=== PATIENT | male | born 1975 | race Caucasian/White ===

== ENCOUNTER 2022-01-19 12:00 | Inpatient (IN) | payer OTHER ==
[2022-01-19 12:39] VITALS: BMI 23.3
[2022-01-19] MEDS ORDERED: IBUPROFEN 400 MG TABLET (FP) PO PRN (13:56)
[2022-01-19] MEDS ORDERED: ACETAMINOPHEN 325 MG TABLET (FP) PO PRN (13:56)
[2022-01-19] MEDS ORDERED: LOPERAMIDE HCL 2 MG CAPSULE PO PRN (13:56)
[2022-01-19] MEDS ORDERED: NICOTINE POLACRILEX 2 MG GUM BC PRN (13:56)
[2022-01-19] MEDS ORDERED: guaiFENesin 200 MG/10 ML 10 ML UNIT-DOSE CUPS PO PRN (13:56)
[2022-01-19] MEDS ORDERED: P-EPHED 60MG/TRIPROLIDI 2.5MG TABLET PO PRN (13:56)
[2022-01-19] MEDS ORDERED: MAG HYDROX/AL HYDROX/SIMETH 30 ML UNIT-DOSE CUP PO PRN (13:56)
[2022-01-19] MEDS ORDERED: MAGNESIUM CITRATE 300 ML BOTTLE PO PRN (13:56)
[2022-01-19] MEDS ORDERED: MAGNESIUM HYDROX 2400MG/30ML ORAL SUSPENSION 30 ML CUP PO PRN (13:56)
[2022-01-19] MEDS ORDERED: TUBERCULIN PPD 5 TU/0.1ML VIAL ID ONE (19:57)
[2022-01-19] MEDS: PRENATAL VITAMINS W/ FOLIC ACID TABLET (FP) PO SCH (22:52)
[2022-01-19] MEDS: NICOTINE 7 MG/24 HOURS TOPICAL PATCH TD SCH (22:52)
[2022-01-19] MEDS: hydrOXYzine PAMOATE 25 MG CAPSULE (FP) PO SCH ×2 (22:52→22:53)
[2022-01-19] MEDS: THIAMINE HCL 100 MG TABLET (FP) PO SCH (22:52)
[2022-01-19] MEDS: MELATONIN 5 MG TABLETS PO SCH (22:52)
[2022-01-20] MEDS: hydrOXYzine PAMOATE 25 MG CAPSULE (FP) PO SCH ×2 (06:04→11:01)
[2022-01-20] MEDS ORDERED: hydrOXYzine PAMOATE 25 MG CAPSULE (FP) PO PRN (10:03)
[2022-01-20 10:53] LABS: HEMATOCRIT 35.3 % (35.4-49); HEMOGLOBIN 12.1 GM/dL (11.7-16.9); MCH 29.4 pg (25.7-33.7); MCHC 34.2 g/dl (32.0-35.9); MEAN CELL VOLUME 85.9 fl (80-96); PLATELET COUNT 151 10^3/uL (134-434); RBC 4.12 M/mm3 (4.00-5.60); RDW 14.4 % (11.9-15.9); WHITE BLOOD COUNT 6.6 K/mm3 (4.0-10.0)
[2022-01-20] MEDS: methaDONE HCL 40 MG DISPERSABLE TABLET PO SCH (10:57)
[2022-01-20] MEDS: PRENATAL VITAMINS W/ FOLIC ACID TABLET (FP) PO SCH (10:58)
[2022-01-20] MEDS: NICOTINE 7 MG/24 HOURS TOPICAL PATCH TD SCH (10:58)
[2022-01-20 12:13] LABS: ALBUMIN 2.7 g/dl (3.4-5.0); CALCIUM 8.4 mg/dL (8.5-10.1)
[2022-01-20 12:14] LABS: BLOOD UREA NITROGEN 13.9 mg/dL (7-18)
[2022-01-20 12:16] LABS: CREATININE 1.1 mg/dL (0.55-1.3)
[2022-01-20 12:18] LABS: BILIRUBIN,TOTAL 0.3 mg/dL (0.2-1)
[2022-01-20] MEDS: CEPHALEXIN MONOHYDRATE 500 MG CAPSULE (UD) PO SCH ×2 (14:52→21:16)
[2022-01-20] MEDS: GABAPENTIN 400 MG CAPSULE PO SCH ×2 (14:52→21:16)
[2022-01-20] MEDS: levETIRAcetam 500 MG TABLET (FP) PO SCH ×2 (14:53→21:17)
[2022-01-20] MEDS: FAMOTIDINE 20 MG TABLET PO SCH ×2 (14:56→21:17)
[2022-01-20] MEDS: BACITRACIN 0.9 GM PACKET TP SCH ×2 (14:56→21:18)
[2022-01-20 16:51] LABS: URINE APPEARANCE TURBID; URINE BILIRUBIN NEGATIVE (NEGATIVE); URINE COLOR YELLOW; URINE GLUCOSE (UA) NEGATIVE (NEGATIVE); URINE KETONE NEGATIVE (NEGATIVE); URINE LEUK ESTERASE NEGATIVE (NEGATIVE); URINE NITRITE NEGATIVE (NEGATIVE); URINE PROTEIN NEGATIVE (NEGATIVE); URINE UROBILINOGEN 0.2 mg/dL (0.2-1.0)
[2022-01-20 18:11] LABS: SYPHILIS W/ RPR CONF NON-REACTIVE (NONREACTIVE)
[2022-01-20] MEDS: THIAMINE HCL 100 MG TABLET (FP) PO SCH (21:16)
[2022-01-20] MEDS: MELATONIN 5 MG TABLETS PO SCH (21:16)
[2022-01-21] MEDS: CEPHALEXIN MONOHYDRATE 500 MG CAPSULE (UD) PO SCH ×4 (02:46→21:13)
[2022-01-21] MEDS: GABAPENTIN 400 MG CAPSULE PO SCH ×3 (07:04→21:15)
[2022-01-21] MEDS: methaDONE HCL 40 MG DISPERSABLE TABLET PO SCH (07:05)
[2022-01-21] MEDS: BACITRACIN 0.9 GM PACKET TP SCH ×2 (10:05→21:17)
[2022-01-21] MEDS: FAMOTIDINE 20 MG TABLET PO SCH ×2 (10:07→21:16)
[2022-01-21] MEDS: levETIRAcetam 500 MG TABLET (FP) PO SCH ×2 (10:07→21:15)
[2022-01-21] MEDS: PRENATAL VITAMINS W/ FOLIC ACID TABLET (FP) PO SCH (10:07)
[2022-01-21] MEDS: NICOTINE 10 MG CARTRIDGE (INHALER) IH PRN (10:08)
[2022-01-21] MEDS: NICOTINE 7 MG/24 HOURS TOPICAL PATCH TD SCH (10:08)
[2022-01-21] MEDS: MIRTAZAPINE 15 MG TABLET (FP) PO SCH (21:15)
[2022-01-21] MEDS: THIAMINE HCL 100 MG TABLET (FP) PO SCH (21:16)
[2022-01-21] MEDS: MELATONIN 5 MG TABLETS PO SCH (21:16)
[2022-01-22] MEDS: CEPHALEXIN MONOHYDRATE 500 MG CAPSULE (UD) PO SCH ×4 (02:28→21:23)
[2022-01-22] MEDS: GABAPENTIN 400 MG CAPSULE PO SCH ×3 (06:29→21:23)
[2022-01-22] MEDS: methaDONE HCL 40 MG DISPERSABLE TABLET PO SCH (06:29)
[2022-01-22] MEDS: levETIRAcetam 500 MG TABLET (FP) PO SCH ×2 (09:44→21:23)
[2022-01-22] MEDS: FAMOTIDINE 20 MG TABLET PO SCH ×2 (09:44→21:23)
[2022-01-22] MEDS: NICOTINE 7 MG/24 HOURS TOPICAL PATCH TD SCH (09:44)
[2022-01-22] MEDS: PRENATAL VITAMINS W/ FOLIC ACID TABLET (FP) PO SCH (09:44)
[2022-01-22] MEDS: BACITRACIN 0.9 GM PACKET TP SCH ×2 (09:44→21:24)
[2022-01-22] MEDS: NICOTINE 10 MG CARTRIDGE (INHALER) IH PRN (13:24)
[2022-01-22] MEDS: THIAMINE HCL 100 MG TABLET (FP) PO SCH (21:23)
[2022-01-22] MEDS: MIRTAZAPINE 15 MG TABLET (FP) PO SCH (21:23)
[2022-01-22] MEDS: MELATONIN 5 MG TABLETS PO SCH (21:24)
[2022-01-23] MEDS: CEPHALEXIN MONOHYDRATE 500 MG CAPSULE (UD) PO SCH ×4 (03:00→21:13)
[2022-01-23] MEDS: methaDONE HCL 40 MG DISPERSABLE TABLET PO SCH (06:41)
[2022-01-23] MEDS: GABAPENTIN 400 MG CAPSULE PO SCH ×3 (06:41→21:13)
[2022-01-23] MEDS: PRENATAL VITAMINS W/ FOLIC ACID TABLET (FP) PO SCH (09:53)
[2022-01-23] MEDS: levETIRAcetam 500 MG TABLET (FP) PO SCH ×2 (09:54→21:13)
[2022-01-23] MEDS: NICOTINE 7 MG/24 HOURS TOPICAL PATCH TD SCH (09:54)
[2022-01-23] MEDS: FAMOTIDINE 20 MG TABLET PO SCH ×2 (09:54→21:13)
[2022-01-23] MEDS: BACITRACIN 0.9 GM PACKET TP SCH ×2 (09:54→21:14)
[2022-01-23] MEDS: THIAMINE HCL 100 MG TABLET (FP) PO SCH (21:13)
[2022-01-23] MEDS: MIRTAZAPINE 15 MG TABLET (FP) PO SCH (21:13)
[2022-01-23] MEDS: MELATONIN 5 MG TABLETS PO SCH (21:14)
[2022-01-24] MEDS: CEPHALEXIN MONOHYDRATE 500 MG CAPSULE (UD) PO SCH ×4 (02:54→20:19)
[2022-01-24] MEDS: GABAPENTIN 400 MG CAPSULE PO SCH ×3 (06:54→21:20)
[2022-01-24] MEDS: methaDONE HCL 40 MG DISPERSABLE TABLET PO SCH (06:55)
[2022-01-24] MEDS: FAMOTIDINE 20 MG TABLET PO SCH ×2 (09:47→21:20)
[2022-01-24] MEDS: levETIRAcetam 500 MG TABLET (FP) PO SCH ×2 (09:47→21:18)
[2022-01-24] MEDS: PRENATAL VITAMINS W/ FOLIC ACID TABLET (FP) PO SCH (09:47)
[2022-01-24] MEDS: BACITRACIN 0.9 GM PACKET TP SCH ×2 (09:48→21:20)
[2022-01-24] MEDS: NICOTINE 7 MG/24 HOURS TOPICAL PATCH TD SCH (09:48)
[2022-01-24] MEDS: MIRTAZAPINE 15 MG TABLET (FP) PO SCH (21:18)
[2022-01-24] MEDS: MELATONIN 5 MG TABLETS PO SCH (21:19)
[2022-01-24] MEDS: THIAMINE HCL 100 MG TABLET (FP) PO SCH (21:19)
[2022-01-25] MEDS: CEPHALEXIN MONOHYDRATE 500 MG CAPSULE (UD) PO SCH ×4 (01:57→20:08)
[2022-01-25] MEDS: GABAPENTIN 400 MG CAPSULE PO SCH ×3 (06:57→22:07)
[2022-01-25] MEDS: methaDONE HCL 40 MG DISPERSABLE TABLET PO SCH (06:59)
[2022-01-25] MEDS: FAMOTIDINE 20 MG TABLET PO SCH ×2 (10:11→22:07)
[2022-01-25] MEDS: NICOTINE 7 MG/24 HOURS TOPICAL PATCH TD SCH (10:11)
[2022-01-25] MEDS: BACITRACIN 0.9 GM PACKET TP SCH ×2 (10:11→22:07)
[2022-01-25] MEDS: PRENATAL VITAMINS W/ FOLIC ACID TABLET (FP) PO SCH (10:11)
[2022-01-25] MEDS: levETIRAcetam 500 MG TABLET (FP) PO SCH ×2 (10:11→22:07)
[2022-01-25] MEDS: MELATONIN 5 MG TABLETS PO SCH (22:07)
[2022-01-25] MEDS: THIAMINE HCL 100 MG TABLET (FP) PO SCH (22:07)
[2022-01-25] MEDS: MIRTAZAPINE 15 MG TABLET (FP) PO SCH (22:07)
[2022-01-26] MEDS: CEPHALEXIN MONOHYDRATE 500 MG CAPSULE (UD) PO SCH ×4 (02:18→21:12)
[2022-01-26] MEDS: GABAPENTIN 400 MG CAPSULE PO SCH ×3 (06:23→21:12)
[2022-01-26] MEDS: methaDONE HCL 40 MG DISPERSABLE TABLET PO SCH (06:25)
[2022-01-26] MEDS: levETIRAcetam 500 MG TABLET (FP) PO SCH ×2 (10:28→21:13)
[2022-01-26] MEDS: BACITRACIN 0.9 GM PACKET TP SCH ×2 (10:28→21:13)
[2022-01-26] MEDS: PRENATAL VITAMINS W/ FOLIC ACID TABLET (FP) PO SCH (10:29)
[2022-01-26] MEDS: FAMOTIDINE 20 MG TABLET PO SCH ×2 (10:29→21:12)
[2022-01-26] MEDS: NICOTINE 7 MG/24 HOURS TOPICAL PATCH TD SCH (10:29)
[2022-01-26] MEDS: THIAMINE HCL 100 MG TABLET (FP) PO SCH (21:12)
[2022-01-26] MEDS: MIRTAZAPINE 15 MG TABLET (FP) PO SCH (21:12)
[2022-01-26] MEDS: MELATONIN 5 MG TABLETS PO SCH (21:13)
[2022-01-27] MEDS: CEPHALEXIN MONOHYDRATE 500 MG CAPSULE (UD) PO SCH ×2 (02:47→08:51)
[2022-01-27] MEDS: GABAPENTIN 400 MG CAPSULE PO SCH ×3 (06:15→21:05)
[2022-01-27] MEDS: methaDONE HCL 40 MG DISPERSABLE TABLET PO SCH (06:15)
[2022-01-27 08:31] VITALS: RESP 18
[2022-01-27] MEDS: NICOTINE 7 MG/24 HOURS TOPICAL PATCH TD SCH (10:44)
[2022-01-27] MEDS: BACITRACIN 0.9 GM PACKET TP SCH ×2 (10:45→21:06)
[2022-01-27] MEDS: PRENATAL VITAMINS W/ FOLIC ACID TABLET (FP) PO SCH (10:45)
[2022-01-27] MEDS: FAMOTIDINE 20 MG TABLET PO SCH ×2 (10:45→21:05)
[2022-01-27] MEDS: levETIRAcetam 500 MG TABLET (FP) PO SCH ×2 (10:45→21:05)
[2022-01-27] MEDS: THIAMINE HCL 100 MG TABLET (FP) PO SCH (21:04)
[2022-01-27] MEDS: MELATONIN 5 MG TABLETS PO SCH (21:04)
[2022-01-27] MEDS: MIRTAZAPINE 15 MG TABLET (FP) PO SCH (21:05)
[2022-01-28] MEDS: methaDONE HCL 40 MG DISPERSABLE TABLET PO SCH (06:49)
[2022-01-28] MEDS: GABAPENTIN 400 MG CAPSULE PO SCH ×3 (06:49→21:13)
[2022-01-28] MEDS: PRENATAL VITAMINS W/ FOLIC ACID TABLET (FP) PO SCH (10:00)
[2022-01-28] MEDS: BACITRACIN 0.9 GM PACKET TP SCH ×2 (10:00→21:13)
[2022-01-28] MEDS: FAMOTIDINE 20 MG TABLET PO SCH ×2 (10:00→21:14)
[2022-01-28] MEDS: levETIRAcetam 500 MG TABLET (FP) PO SCH ×2 (10:00→21:13)
[2022-01-28] MEDS: NICOTINE 7 MG/24 HOURS TOPICAL PATCH TD SCH (10:01)
[2022-01-28] MEDS: MIRTAZAPINE 15 MG TABLET (FP) PO SCH (21:13)
[2022-01-28] MEDS: MELATONIN 5 MG TABLETS PO SCH (21:14)
[2022-01-28] MEDS: NICOTINE 10 MG CARTRIDGE (INHALER) IH PRN (21:14)
[2022-01-28] MEDS: THIAMINE HCL 100 MG TABLET (FP) PO SCH (21:14)
[2022-01-29] MEDS: methaDONE HCL 40 MG DISPERSABLE TABLET PO SCH (06:03)
[2022-01-29] MEDS: GABAPENTIN 400 MG CAPSULE PO SCH ×3 (06:03→21:21)
[2022-01-29] MEDS: NICOTINE 10 MG CARTRIDGE (INHALER) IH PRN ×3 (06:51→13:01)
[2022-01-29] MEDS: PRENATAL VITAMINS W/ FOLIC ACID TABLET (FP) PO SCH (09:56)
[2022-01-29] MEDS: levETIRAcetam 500 MG TABLET (FP) PO SCH ×2 (09:57→21:20)
[2022-01-29] MEDS: BACITRACIN 0.9 GM PACKET TP SCH ×2 (09:57→21:21)
[2022-01-29] MEDS: NICOTINE 7 MG/24 HOURS TOPICAL PATCH TD SCH (09:57)
[2022-01-29] MEDS: FAMOTIDINE 20 MG TABLET PO SCH ×2 (09:57→21:21)
[2022-01-29] MEDS: MELATONIN 5 MG TABLETS PO SCH (21:21)
[2022-01-29] MEDS: THIAMINE HCL 100 MG TABLET (FP) PO SCH (21:21)
[2022-01-29] MEDS: MIRTAZAPINE 15 MG TABLET (FP) PO SCH (21:21)
[2022-01-30] MEDS: methaDONE HCL 40 MG DISPERSABLE TABLET PO SCH (06:52)
[2022-01-30] MEDS: GABAPENTIN 400 MG CAPSULE PO SCH ×3 (06:52→21:23)
[2022-01-30] MEDS: NICOTINE 10 MG CARTRIDGE (INHALER) IH PRN ×2 (06:54→11:08)
[2022-01-30] MEDS: levETIRAcetam 500 MG TABLET (FP) PO SCH ×2 (11:08→21:23)
[2022-01-30] MEDS: FAMOTIDINE 20 MG TABLET PO SCH ×2 (11:08→21:23)
[2022-01-30] MEDS: NICOTINE 7 MG/24 HOURS TOPICAL PATCH TD SCH (11:09)
[2022-01-30] MEDS: BACITRACIN 0.9 GM PACKET TP SCH ×2 (11:10→21:23)
[2022-01-30] MEDS: PRENATAL VITAMINS W/ FOLIC ACID TABLET (FP) PO SCH (11:11)
[2022-01-30] MEDS: MIRTAZAPINE 15 MG TABLET (FP) PO SCH (21:23)
[2022-01-30] MEDS: THIAMINE HCL 100 MG TABLET (FP) PO SCH (21:24)
[2022-01-30] MEDS: MELATONIN 5 MG TABLETS PO SCH (21:24)
[2022-01-31] MEDS: GABAPENTIN 400 MG CAPSULE PO SCH ×3 (06:37→21:39)
[2022-01-31] MEDS: methaDONE HCL 40 MG DISPERSABLE TABLET PO SCH (06:37)
[2022-01-31] MEDS: PRENATAL VITAMINS W/ FOLIC ACID TABLET (FP) PO SCH (10:27)
[2022-01-31] MEDS: FAMOTIDINE 20 MG TABLET PO SCH ×2 (10:27→21:40)
[2022-01-31] MEDS: levETIRAcetam 500 MG TABLET (FP) PO SCH ×2 (10:27→21:39)
[2022-01-31] MEDS: NICOTINE 7 MG/24 HOURS TOPICAL PATCH TD SCH (10:27)
[2022-01-31] MEDS: BACITRACIN 0.9 GM PACKET TP SCH ×2 (10:28→21:39)
[2022-01-31] MEDS: MELATONIN 5 MG TABLETS PO SCH (21:39)
[2022-01-31] MEDS: THIAMINE HCL 100 MG TABLET (FP) PO SCH (21:40)
[2022-01-31] MEDS: MIRTAZAPINE 15 MG TABLET (FP) PO SCH (21:40)
[2022-02-01] MEDS: GABAPENTIN 400 MG CAPSULE PO SCH ×3 (06:58→21:00)
[2022-02-01] MEDS: methaDONE HCL 40 MG DISPERSABLE TABLET PO SCH (06:58)
[2022-02-01] MEDS: levETIRAcetam 500 MG TABLET (FP) PO SCH ×2 (10:18→21:01)
[2022-02-01] MEDS: NICOTINE 7 MG/24 HOURS TOPICAL PATCH TD SCH (10:19)
[2022-02-01] MEDS: FAMOTIDINE 20 MG TABLET PO SCH ×2 (10:20→21:00)
[2022-02-01] MEDS: BACITRACIN 0.9 GM PACKET TP SCH ×2 (10:20→21:02)
[2022-02-01] MEDS: PRENATAL VITAMINS W/ FOLIC ACID TABLET (FP) PO SCH (10:21)
[2022-02-01] MEDS: THIAMINE HCL 100 MG TABLET (FP) PO SCH (21:01)
[2022-02-01] MEDS: MIRTAZAPINE 15 MG TABLET (FP) PO SCH (21:01)
[2022-02-01] MEDS: MELATONIN 5 MG TABLETS PO SCH (21:01)
[2022-02-01] MEDS: NICOTINE 10 MG CARTRIDGE (INHALER) IH PRN (21:01)
[2022-02-02] MEDS: methaDONE HCL 40 MG DISPERSABLE TABLET PO SCH (06:10)
[2022-02-02] MEDS: GABAPENTIN 400 MG CAPSULE PO SCH ×3 (07:10→21:35)
[2022-02-02] MEDS: FAMOTIDINE 20 MG TABLET PO SCH ×2 (10:14→21:35)
[2022-02-02] MEDS: levETIRAcetam 500 MG TABLET (FP) PO SCH ×2 (10:14→21:35)
[2022-02-02] MEDS: BACITRACIN 0.9 GM PACKET TP SCH ×2 (10:14→21:34)
[2022-02-02] MEDS: NICOTINE 7 MG/24 HOURS TOPICAL PATCH TD SCH (10:15)
[2022-02-02] MEDS: PRENATAL VITAMINS W/ FOLIC ACID TABLET (FP) PO SCH (10:15)
[2022-02-02] MEDS: NICOTINE 10 MG CARTRIDGE (INHALER) IH PRN (10:19)
[2022-02-02] MEDS: MELATONIN 5 MG TABLETS PO SCH (21:35)
[2022-02-02] MEDS: THIAMINE HCL 100 MG TABLET (FP) PO SCH (21:35)
[2022-02-02] MEDS: MIRTAZAPINE 15 MG TABLET (FP) PO SCH (21:35)
[2022-02-03] MEDS: GABAPENTIN 400 MG CAPSULE PO SCH ×3 (06:42→21:11)
[2022-02-03] MEDS: NICOTINE 10 MG CARTRIDGE (INHALER) IH PRN ×3 (06:42→22:08)
[2022-02-03] MEDS: methaDONE HCL 40 MG DISPERSABLE TABLET PO SCH (06:45)
[2022-02-03] MEDS: FAMOTIDINE 20 MG TABLET PO SCH ×2 (10:37→21:11)
[2022-02-03] MEDS: levETIRAcetam 500 MG TABLET (FP) PO SCH ×2 (10:37→21:11)
[2022-02-03] MEDS: PRENATAL VITAMINS W/ FOLIC ACID TABLET (FP) PO SCH (10:37)
[2022-02-03] MEDS: NICOTINE 7 MG/24 HOURS TOPICAL PATCH TD SCH (10:38)
[2022-02-03] MEDS: BACITRACIN 0.9 GM PACKET TP SCH ×2 (10:39→21:11)
[2022-02-03] MEDS: MELATONIN 5 MG TABLETS PO SCH (21:11)
[2022-02-03] MEDS: THIAMINE HCL 100 MG TABLET (FP) PO SCH (21:12)
[2022-02-03] MEDS: MIRTAZAPINE 15 MG TABLET (FP) PO SCH (22:08)
[2022-02-04] MEDS: methaDONE HCL 40 MG DISPERSABLE TABLET PO SCH (06:44)
[2022-02-04] MEDS: GABAPENTIN 400 MG CAPSULE PO SCH ×3 (06:44→21:08)
[2022-02-04] MEDS: NICOTINE 7 MG/24 HOURS TOPICAL PATCH TD SCH (10:11)
[2022-02-04] MEDS: BACITRACIN 0.9 GM PACKET TP SCH ×2 (10:11→21:08)
[2022-02-04] MEDS: levETIRAcetam 500 MG TABLET (FP) PO SCH ×2 (10:12→21:08)
[2022-02-04] MEDS: FAMOTIDINE 20 MG TABLET PO SCH ×2 (10:12→21:08)
[2022-02-04] MEDS: PRENATAL VITAMINS W/ FOLIC ACID TABLET (FP) PO SCH (10:12)
[2022-02-04] MEDS: NICOTINE 10 MG CARTRIDGE (INHALER) IH PRN ×2 (10:13→21:07)
[2022-02-04] MEDS: MELATONIN 5 MG TABLETS PO SCH (21:08)
[2022-02-04] MEDS: THIAMINE HCL 100 MG TABLET (FP) PO SCH (21:08)
[2022-02-04] MEDS: MIRTAZAPINE 15 MG TABLET (FP) PO SCH (21:08)
[2022-02-05] MEDS: methaDONE HCL 40 MG DISPERSABLE TABLET PO SCH (06:25)
[2022-02-05] MEDS: GABAPENTIN 400 MG CAPSULE PO SCH ×3 (06:25→21:13)
[2022-02-05] MEDS: NICOTINE 10 MG CARTRIDGE (INHALER) IH PRN ×3 (06:26→21:14)
[2022-02-05] MEDS: BACITRACIN 0.9 GM PACKET TP SCH ×2 (10:36→21:13)
[2022-02-05] MEDS: PRENATAL VITAMINS W/ FOLIC ACID TABLET (FP) PO SCH (10:36)
[2022-02-05] MEDS: NICOTINE 7 MG/24 HOURS TOPICAL PATCH TD SCH (10:36)
[2022-02-05] MEDS: levETIRAcetam 500 MG TABLET (FP) PO SCH ×2 (10:36→21:13)
[2022-02-05] MEDS: FAMOTIDINE 20 MG TABLET PO SCH ×2 (10:36→21:13)
[2022-02-05] MEDS: THIAMINE HCL 100 MG TABLET (FP) PO SCH (21:12)
[2022-02-05] MEDS: MELATONIN 5 MG TABLETS PO SCH (21:12)
[2022-02-05] MEDS: MIRTAZAPINE 15 MG TABLET (FP) PO SCH (21:13)
[2022-02-06] MEDS: methaDONE HCL 40 MG DISPERSABLE TABLET PO SCH (06:47)
[2022-02-06] MEDS: NICOTINE 10 MG CARTRIDGE (INHALER) IH PRN ×2 (06:47→09:25)
[2022-02-06] MEDS: GABAPENTIN 400 MG CAPSULE PO SCH ×2 (06:47→14:30)
[2022-02-06 06:51] VITALS: BP 106/66; PULSE 70; TEMP 97.5
[2022-02-06] MEDS: PRENATAL VITAMINS W/ FOLIC ACID TABLET (FP) PO SCH (09:23)
[2022-02-06] MEDS: NICOTINE 7 MG/24 HOURS TOPICAL PATCH TD SCH (09:23)
[2022-02-06] MEDS: BACITRACIN 0.9 GM PACKET TP SCH (09:23)
[2022-02-06] MEDS: FAMOTIDINE 20 MG TABLET PO SCH (09:23)
[2022-02-06] MEDS: levETIRAcetam 500 MG TABLET (FP) PO SCH (09:24)
== END 2022-02-06 14:58 | disposition home or self-care (01) | DRG 772 ==
LOC: SUATTDRO 12:00 → YASAS 12:00 → Y3W 17:58
PROVIDERS: ADMIT Allergy & Immunology; ATTEND Surgery
PROC: HZ42ZZZ Group Counseling for Substance Abuse Treatment, Cognitive-Behavioral (ICD-10-PCS; principal; 2022-01-19)
DX: F11.20 Opioid dependence, uncomplicated (principal); F14.20 Cocaine dependence, uncomplicated; F12.20 Cannabis dependence, uncomplicated; F17.210 Nicotine dependence, cigarettes, uncomplicated; F31.9 Bipolar disorder, unspecified; F41.9 Anxiety disorder, unspecified; G40.909 Epilepsy, unspecified, not intractable, without status epilepticus; Z86.19 Personal history of other infectious and parasitic diseases; Z28.311 Partially vaccinated for COVID-19
CPT/HCPCS: 36415; 80053; 81003; 82962; 83036; 85027; 86780; 86803; 87522; 87811; C9803-CS; U0003; U0005

== ENCOUNTER 2022-03-14 10:06 | Inpatient (IN) | payer OTHER ==
[2022-03-14 11:04] VITALS: BMI 20.7
[2022-03-14] MEDS ORDERED: MAGNESIUM HYDROX 2400MG/30ML ORAL SUSPENSION 30 ML CUP PO PRN (12:19)
[2022-03-14] MEDS ORDERED: hydrOXYzine PAMOATE 25 MG CAPSULE (FP) PO PRN (12:19)
[2022-03-14] MEDS ORDERED: MAG HYDROX/AL HYDROX/SIMETH 30 ML UNIT-DOSE CUP PO PRN (12:19)
[2022-03-14] MEDS ORDERED: P-EPHED 60MG/TRIPROLIDI 2.5MG TABLET PO PRN (12:19)
[2022-03-14] MEDS ORDERED: NICOTINE POLACRILEX 4 MG GUM BUC PRN (12:19)
[2022-03-14] MEDS ORDERED: LOPERAMIDE HCL 2 MG CAPSULE PO PRN (12:19)
[2022-03-14] MEDS ORDERED: guaiFENesin 200 MG/10 ML 10 ML UNIT-DOSE CUPS PO PRN (12:19)
[2022-03-14] MEDS ORDERED: MAGNESIUM CITRATE 300 ML BOTTLE PO PRN (12:19)
[2022-03-14] MEDS ORDERED: methaDONE HCL 40 MG DISPERSABLE TABLET PO ONE (14:00)
[2022-03-14] MEDS: GABAPENTIN 400 MG CAPSULE PO SCH ×2 (15:46→22:01)
[2022-03-14] MEDS: NICOTINE 21 MG/24 HOURS TOPICAL PATCH TD SCH (15:47)
[2022-03-14] MEDS: FAMOTIDINE 20 MG TABLET PO SCH ×2 (15:47→22:01)
[2022-03-14] MEDS: BACITRACIN 0.9 GM PACKET TP SCH (15:48)
[2022-03-14] MEDS ORDERED: MELATONIN 5 MG TABLETS PO SCH (22:00)
[2022-03-14] MEDS: levETIRAcetam 500 MG TABLET (FP) PO SCH (22:01)
[2022-03-14] MEDS: MIRTAZAPINE 15 MG TABLET (FP) PO SCH (22:01)
[2022-03-15] MEDS: GABAPENTIN 400 MG CAPSULE PO SCH ×3 (06:42→21:20)
[2022-03-15] MEDS: methaDONE HCL 40 MG DISPERSABLE TABLET PO SCH (06:44)
[2022-03-15] MEDS: levETIRAcetam 500 MG TABLET (FP) PO SCH ×2 (09:58→21:20)
[2022-03-15] MEDS: PRENATAL VITAMINS W/ FOLIC ACID TABLET (FP) PO SCH (09:58)
[2022-03-15] MEDS: FAMOTIDINE 20 MG TABLET PO SCH ×2 (09:59→21:21)
[2022-03-15] MEDS: NICOTINE 21 MG/24 HOURS TOPICAL PATCH TD SCH (09:59)
[2022-03-15] MEDS: THIAMINE HCL 100 MG TABLET (FP) PO SCH (09:59)
[2022-03-15] MEDS: BACITRACIN 0.9 GM PACKET TP SCH (09:59)
[2022-03-15] MEDS: NICOTINE 10 MG CARTRIDGE (INHALER) IH PRN (13:55)
[2022-03-15] MEDS: MIRTAZAPINE 15 MG TABLET (FP) PO SCH (21:20)
[2022-03-16] MEDS: methaDONE HCL 40 MG DISPERSABLE TABLET PO SCH (06:29)
[2022-03-16] MEDS: GABAPENTIN 400 MG CAPSULE PO SCH ×3 (06:30→21:21)
[2022-03-16] MEDS: BACITRACIN 0.9 GM PACKET TP SCH (09:50)
[2022-03-16] MEDS: THIAMINE HCL 100 MG TABLET (FP) PO SCH (09:50)
[2022-03-16] MEDS: NICOTINE 10 MG CARTRIDGE (INHALER) IH PRN (09:50)
[2022-03-16] MEDS: levETIRAcetam 500 MG TABLET (FP) PO SCH ×2 (09:50→21:20)
[2022-03-16] MEDS: PRENATAL VITAMINS W/ FOLIC ACID TABLET (FP) PO SCH (09:50)
[2022-03-16] MEDS: FAMOTIDINE 20 MG TABLET PO SCH ×2 (09:50→21:21)
[2022-03-16] MEDS: NICOTINE 21 MG/24 HOURS TOPICAL PATCH TD SCH (09:51)
[2022-03-16 11:15] LABS: HEMATOCRIT 41.7 % (35.4-49); HEMOGLOBIN 13.9 GM/dL (11.7-16.9); MCH 28.9 pg (25.7-33.7); MCHC 33.2 g/dl (32.0-35.9); MEAN PLT VOLUME 9.4 fl (7.5-11.1); PLATELET COUNT 189 10^3/uL (134-434); RDW 13.8 % (11.9-15.9); WHITE BLOOD COUNT 6.5 K/mm3 (4.0-10.0)
[2022-03-16 11:16] LABS: CALCIUM 8.8 mg/dL (8.5-10.1)
[2022-03-16 11:17] LABS: ALBUMIN 3.1 g/dl (3.4-5.0); BLOOD UREA NITROGEN 17.4 mg/dL (7-18)
[2022-03-16 11:20] LABS: CREATININE 1.1 mg/dL (0.55-1.3)
[2022-03-16 11:21] LABS: BILIRUBIN,TOTAL 0.4 mg/dL (0.2-1)
[2022-03-16 11:22] LABS: TOT PROT 6.6 g/dl (6.4-8.2)
[2022-03-16 11:50] LABS: SYPHILIS W/ RPR CONF NON-REACTIVE (NONREACTIVE)
[2022-03-16] MEDS: MIRTAZAPINE 15 MG TABLET (FP) PO SCH (21:21)
[2022-03-17] MEDS: GABAPENTIN 400 MG CAPSULE PO SCH ×3 (05:51→21:10)
[2022-03-17] MEDS: methaDONE HCL 40 MG DISPERSABLE TABLET PO SCH (05:51)
[2022-03-17] MEDS: levETIRAcetam 500 MG TABLET (FP) PO SCH ×2 (10:05→21:10)
[2022-03-17] MEDS: PRENATAL VITAMINS W/ FOLIC ACID TABLET (FP) PO SCH (10:05)
[2022-03-17] MEDS: NICOTINE 10 MG CARTRIDGE (INHALER) IH PRN (10:06)
[2022-03-17] MEDS: BACITRACIN 0.9 GM PACKET TP SCH (10:06)
[2022-03-17] MEDS: THIAMINE HCL 100 MG TABLET (FP) PO SCH (10:06)
[2022-03-17] MEDS: NICOTINE 21 MG/24 HOURS TOPICAL PATCH TD SCH (10:06)
[2022-03-17] MEDS: FAMOTIDINE 20 MG TABLET PO SCH ×2 (10:06→21:10)
[2022-03-17] MEDS: CEPHALEXIN MONOHYDRATE 500 MG CAPSULE (UD) PO SCH (17:30)
[2022-03-17 19:43] LABS: URINE APPEARANCE CLEAR; URINE BILIRUBIN NEGATIVE (NEGATIVE); URINE COLOR YELLOW; URINE GLUCOSE (UA) NEGATIVE (NEGATIVE); URINE KETONE TRACE (NEGATIVE); URINE LEUK ESTERASE NEGATIVE (NEGATIVE); URINE NITRITE NEGATIVE (NEGATIVE); URINE PROTEIN NEGATIVE (NEGATIVE); URINE UROBILINOGEN 0.2 mg/dL (0.2-1.0)
[2022-03-17] MEDS: MIRTAZAPINE 15 MG TABLET (FP) PO SCH (21:10)
[2022-03-18] MEDS: CEPHALEXIN MONOHYDRATE 500 MG CAPSULE (UD) PO SCH ×4 (00:53→17:23)
[2022-03-18] MEDS: GABAPENTIN 400 MG CAPSULE PO SCH ×3 (06:05→21:15)
[2022-03-18] MEDS: methaDONE HCL 40 MG DISPERSABLE TABLET PO SCH (06:05)
[2022-03-18] MEDS: NICOTINE 10 MG CARTRIDGE (INHALER) IH PRN (06:12)
[2022-03-18] MEDS: PRENATAL VITAMINS W/ FOLIC ACID TABLET (FP) PO SCH (09:55)
[2022-03-18] MEDS: THIAMINE HCL 100 MG TABLET (FP) PO SCH (09:56)
[2022-03-18] MEDS: levETIRAcetam 500 MG TABLET (FP) PO SCH ×2 (09:56→21:15)
[2022-03-18] MEDS: NICOTINE 21 MG/24 HOURS TOPICAL PATCH TD SCH (09:56)
[2022-03-18] MEDS: FAMOTIDINE 20 MG TABLET PO SCH ×2 (09:56→21:15)
[2022-03-18] MEDS: BACITRACIN 0.9 GM PACKET TP SCH (09:56)
[2022-03-18] MEDS: MIRTAZAPINE 15 MG TABLET (FP) PO SCH (21:15)
[2022-03-19] MEDS: CEPHALEXIN MONOHYDRATE 500 MG CAPSULE (UD) PO SCH ×4 (01:23→18:04)
[2022-03-19] MEDS: methaDONE HCL 40 MG DISPERSABLE TABLET PO SCH (06:33)
[2022-03-19] MEDS: GABAPENTIN 400 MG CAPSULE PO SCH ×3 (06:33→21:24)
[2022-03-19] MEDS: BACITRACIN 0.9 GM PACKET TP SCH (09:54)
[2022-03-19] MEDS: FAMOTIDINE 20 MG TABLET PO SCH ×2 (09:54→21:24)
[2022-03-19] MEDS: NICOTINE 21 MG/24 HOURS TOPICAL PATCH TD SCH (09:55)
[2022-03-19] MEDS: levETIRAcetam 500 MG TABLET (FP) PO SCH ×2 (09:55→21:23)
[2022-03-19] MEDS: THIAMINE HCL 100 MG TABLET (FP) PO SCH (09:55)
[2022-03-19] MEDS: PRENATAL VITAMINS W/ FOLIC ACID TABLET (FP) PO SCH (09:55)
[2022-03-19] MEDS: NICOTINE 10 MG CARTRIDGE (INHALER) IH PRN ×2 (09:56→21:23)
[2022-03-19] MEDS: MIRTAZAPINE 15 MG TABLET (FP) PO SCH (21:24)
[2022-03-20] MEDS: CEPHALEXIN MONOHYDRATE 500 MG CAPSULE (UD) PO SCH ×4 (01:05→17:02)
[2022-03-20] MEDS: GABAPENTIN 400 MG CAPSULE PO SCH ×3 (06:29→21:19)
[2022-03-20] MEDS: methaDONE HCL 40 MG DISPERSABLE TABLET PO SCH (06:30)
[2022-03-20] MEDS: BACITRACIN 0.9 GM PACKET TP SCH (10:20)
[2022-03-20] MEDS: PRENATAL VITAMINS W/ FOLIC ACID TABLET (FP) PO SCH (10:20)
[2022-03-20] MEDS: levETIRAcetam 500 MG TABLET (FP) PO SCH ×2 (10:20→21:19)
[2022-03-20] MEDS: FAMOTIDINE 20 MG TABLET PO SCH ×2 (10:21→21:20)
[2022-03-20] MEDS: NICOTINE 21 MG/24 HOURS TOPICAL PATCH TD SCH (10:21)
[2022-03-20] MEDS: THIAMINE HCL 100 MG TABLET (FP) PO SCH (10:21)
[2022-03-20] MEDS: IBUPROFEN 400 MG TABLET (FP) PO PRN (16:54)
[2022-03-20] MEDS: MIRTAZAPINE 15 MG TABLET (FP) PO SCH (21:20)
[2022-03-20] MEDS: NICOTINE 10 MG CARTRIDGE (INHALER) IH PRN (21:21)
[2022-03-21] MEDS: CEPHALEXIN MONOHYDRATE 500 MG CAPSULE (UD) PO SCH ×5 (01:06→23:16)
[2022-03-21] MEDS: GABAPENTIN 400 MG CAPSULE PO SCH ×3 (05:59→21:22)
[2022-03-21] MEDS: methaDONE HCL 40 MG DISPERSABLE TABLET PO SCH (05:59)
[2022-03-21] MEDS: NICOTINE 10 MG CARTRIDGE (INHALER) IH PRN ×2 (06:00→10:03)
[2022-03-21] MEDS: PRENATAL VITAMINS W/ FOLIC ACID TABLET (FP) PO SCH (10:02)
[2022-03-21] MEDS: THIAMINE HCL 100 MG TABLET (FP) PO SCH (10:02)
[2022-03-21] MEDS: levETIRAcetam 500 MG TABLET (FP) PO SCH ×2 (10:02→21:22)
[2022-03-21] MEDS: NICOTINE 21 MG/24 HOURS TOPICAL PATCH TD SCH (10:03)
[2022-03-21] MEDS: FAMOTIDINE 20 MG TABLET PO SCH ×2 (10:03→21:22)
[2022-03-21] MEDS: BACITRACIN 0.9 GM PACKET TP SCH (10:45)
[2022-03-21] MEDS: MIRTAZAPINE 15 MG TABLET (FP) PO SCH (21:22)
[2022-03-22] MEDS: GABAPENTIN 400 MG CAPSULE PO SCH ×3 (05:48→21:18)
[2022-03-22] MEDS: methaDONE HCL 40 MG DISPERSABLE TABLET PO SCH (05:48)
[2022-03-22] MEDS: CEPHALEXIN MONOHYDRATE 500 MG CAPSULE (UD) PO SCH ×4 (05:49→23:26)
[2022-03-22] MEDS: PRENATAL VITAMINS W/ FOLIC ACID TABLET (FP) PO SCH (09:30)
[2022-03-22] MEDS: FAMOTIDINE 20 MG TABLET PO SCH ×2 (09:30→21:18)
[2022-03-22] MEDS: levETIRAcetam 500 MG TABLET (FP) PO SCH ×2 (09:30→21:18)
[2022-03-22] MEDS: BACITRACIN 0.9 GM PACKET TP SCH (09:31)
[2022-03-22] MEDS: THIAMINE HCL 100 MG TABLET (FP) PO SCH (09:31)
[2022-03-22] MEDS: NICOTINE 21 MG/24 HOURS TOPICAL PATCH TD SCH (09:31)
[2022-03-22] MEDS: NICOTINE 10 MG CARTRIDGE (INHALER) IH PRN ×2 (17:28→21:17)
[2022-03-22] MEDS: MIRTAZAPINE 15 MG TABLET (FP) PO SCH (21:18)
[2022-03-23] MEDS: IBUPROFEN 400 MG TABLET (FP) PO PRN ×2 (01:22→18:16)
[2022-03-23] MEDS: CEPHALEXIN MONOHYDRATE 500 MG CAPSULE (UD) PO SCH ×3 (06:17→18:03)
[2022-03-23] MEDS: methaDONE HCL 40 MG DISPERSABLE TABLET PO SCH (06:17)
[2022-03-23] MEDS: GABAPENTIN 400 MG CAPSULE PO SCH ×3 (06:17→21:15)
[2022-03-23] MEDS: NICOTINE 10 MG CARTRIDGE (INHALER) IH PRN ×2 (10:17→21:14)
[2022-03-23] MEDS: THIAMINE HCL 100 MG TABLET (FP) PO SCH (10:18)
[2022-03-23] MEDS: levETIRAcetam 500 MG TABLET (FP) PO SCH ×2 (10:18→21:15)
[2022-03-23] MEDS: PRENATAL VITAMINS W/ FOLIC ACID TABLET (FP) PO SCH (10:18)
[2022-03-23] MEDS: NICOTINE 21 MG/24 HOURS TOPICAL PATCH TD SCH (10:18)
[2022-03-23] MEDS: FAMOTIDINE 20 MG TABLET PO SCH ×2 (10:18→21:15)
[2022-03-23] MEDS: BACITRACIN 0.9 GM PACKET TP SCH (10:19)
[2022-03-23] MEDS: MIRTAZAPINE 15 MG TABLET (FP) PO SCH (21:15)
[2022-03-23] MEDS: ACETAMINOPHEN 325 MG TABLET (FP) PO PRN (22:02)
[2022-03-24] MEDS: CEPHALEXIN MONOHYDRATE 500 MG CAPSULE (UD) PO SCH ×4 (00:34→19:02)
[2022-03-24] MEDS: methaDONE HCL 40 MG DISPERSABLE TABLET PO SCH (06:14)
[2022-03-24] MEDS: GABAPENTIN 400 MG CAPSULE PO SCH ×3 (06:14→21:17)
[2022-03-24] MEDS: FAMOTIDINE 20 MG TABLET PO SCH ×2 (10:03→21:17)
[2022-03-24] MEDS: PRENATAL VITAMINS W/ FOLIC ACID TABLET (FP) PO SCH (10:03)
[2022-03-24] MEDS: levETIRAcetam 500 MG TABLET (FP) PO SCH ×2 (10:03→21:17)
[2022-03-24] MEDS: NICOTINE 21 MG/24 HOURS TOPICAL PATCH TD SCH (10:03)
[2022-03-24] MEDS: BACITRACIN 0.9 GM PACKET TP SCH (10:03)
[2022-03-24] MEDS: THIAMINE HCL 100 MG TABLET (FP) PO SCH (10:05)
[2022-03-24] MEDS: NICOTINE 10 MG CARTRIDGE (INHALER) IH PRN ×2 (10:06→21:17)
[2022-03-24] MEDS: MIRTAZAPINE 15 MG TABLET (FP) PO SCH (21:17)
[2022-03-25] MEDS: CEPHALEXIN MONOHYDRATE 500 MG CAPSULE (UD) PO SCH ×5 (01:14→23:32)
[2022-03-25] MEDS: GABAPENTIN 400 MG CAPSULE PO SCH ×3 (06:09→21:24)
[2022-03-25] MEDS: methaDONE HCL 40 MG DISPERSABLE TABLET PO SCH (06:09)
[2022-03-25] MEDS: ACETAMINOPHEN 325 MG TABLET (FP) PO PRN ×2 (06:10→19:53)
[2022-03-25] MEDS: PRENATAL VITAMINS W/ FOLIC ACID TABLET (FP) PO SCH (10:20)
[2022-03-25] MEDS: FAMOTIDINE 20 MG TABLET PO SCH ×2 (10:20→21:24)
[2022-03-25] MEDS: levETIRAcetam 500 MG TABLET (FP) PO SCH ×2 (10:20→21:24)
[2022-03-25] MEDS: BACITRACIN 0.9 GM PACKET TP SCH (10:20)
[2022-03-25] MEDS: NICOTINE 21 MG/24 HOURS TOPICAL PATCH TD SCH (10:20)
[2022-03-25] MEDS: NICOTINE 10 MG CARTRIDGE (INHALER) IH PRN ×2 (10:21→21:26)
[2022-03-25] MEDS: THIAMINE HCL 100 MG TABLET (FP) PO SCH (10:21)
[2022-03-25] MEDS: MIRTAZAPINE 15 MG TABLET (FP) PO SCH (21:25)
[2022-03-26] MEDS: ACETAMINOPHEN 325 MG TABLET (FP) PO PRN ×2 (06:42→10:59)
[2022-03-26] MEDS: CEPHALEXIN MONOHYDRATE 500 MG CAPSULE (UD) PO SCH ×4 (06:42→23:39)
[2022-03-26] MEDS: GABAPENTIN 400 MG CAPSULE PO SCH ×3 (06:42→21:19)
[2022-03-26] MEDS: methaDONE HCL 40 MG DISPERSABLE TABLET PO SCH (06:43)
[2022-03-26] MEDS: levETIRAcetam 500 MG TABLET (FP) PO SCH ×2 (09:53→21:19)
[2022-03-26] MEDS: THIAMINE HCL 100 MG TABLET (FP) PO SCH (09:53)
[2022-03-26] MEDS: FAMOTIDINE 20 MG TABLET PO SCH ×2 (09:53→21:19)
[2022-03-26] MEDS: BACITRACIN 0.9 GM PACKET TP SCH (09:53)
[2022-03-26] MEDS: NICOTINE 21 MG/24 HOURS TOPICAL PATCH TD SCH (09:53)
[2022-03-26] MEDS: PRENATAL VITAMINS W/ FOLIC ACID TABLET (FP) PO SCH (09:53)
[2022-03-26] MEDS: NICOTINE 10 MG CARTRIDGE (INHALER) IH PRN (14:34)
[2022-03-26] MEDS: MIRTAZAPINE 15 MG TABLET (FP) PO SCH (21:19)
[2022-03-27] MEDS: GABAPENTIN 400 MG CAPSULE PO SCH ×3 (06:07→21:19)
[2022-03-27] MEDS: CEPHALEXIN MONOHYDRATE 500 MG CAPSULE (UD) PO SCH ×2 (06:07→12:23)
[2022-03-27] MEDS: methaDONE HCL 40 MG DISPERSABLE TABLET PO SCH (06:07)
[2022-03-27] MEDS: NICOTINE 10 MG CARTRIDGE (INHALER) IH PRN ×3 (06:07→21:21)
[2022-03-27] MEDS: levETIRAcetam 500 MG TABLET (FP) PO SCH ×2 (10:17→21:19)
[2022-03-27] MEDS: BACITRACIN 0.9 GM PACKET TP SCH (10:17)
[2022-03-27] MEDS: ACETAMINOPHEN 325 MG TABLET (FP) PO PRN ×2 (10:17→18:10)
[2022-03-27] MEDS: PRENATAL VITAMINS W/ FOLIC ACID TABLET (FP) PO SCH (10:17)
[2022-03-27] MEDS: NICOTINE 21 MG/24 HOURS TOPICAL PATCH TD SCH (10:17)
[2022-03-27] MEDS: THIAMINE HCL 100 MG TABLET (FP) PO SCH (10:18)
[2022-03-27] MEDS: FAMOTIDINE 20 MG TABLET PO SCH ×2 (10:18→21:19)
[2022-03-27] MEDS: MIRTAZAPINE 15 MG TABLET (FP) PO SCH (21:20)
[2022-03-28] MEDS: GABAPENTIN 400 MG CAPSULE PO SCH ×3 (06:58→21:11)
[2022-03-28] MEDS: methaDONE HCL 40 MG DISPERSABLE TABLET PO SCH (06:58)
[2022-03-28] MEDS: PRENATAL VITAMINS W/ FOLIC ACID TABLET (FP) PO SCH (09:53)
[2022-03-28] MEDS: THIAMINE HCL 100 MG TABLET (FP) PO SCH (09:54)
[2022-03-28] MEDS: FAMOTIDINE 20 MG TABLET PO SCH ×2 (09:54→21:11)
[2022-03-28] MEDS: ACETAMINOPHEN 325 MG TABLET (FP) PO PRN (09:54)
[2022-03-28] MEDS: NICOTINE 21 MG/24 HOURS TOPICAL PATCH TD SCH (09:54)
[2022-03-28] MEDS: levETIRAcetam 500 MG TABLET (FP) PO SCH ×2 (09:54→21:11)
[2022-03-28] MEDS: BACITRACIN 0.9 GM PACKET TP SCH (09:57)
[2022-03-28] MEDS: MIRTAZAPINE 15 MG TABLET (FP) PO SCH (21:11)
[2022-03-29] MEDS: ACETAMINOPHEN 325 MG TABLET (FP) PO PRN ×3 (00:02→21:09)
[2022-03-29] MEDS: GABAPENTIN 400 MG CAPSULE PO SCH ×3 (06:44→21:08)
[2022-03-29] MEDS: methaDONE HCL 40 MG DISPERSABLE TABLET PO SCH (06:44)
[2022-03-29] MEDS: NICOTINE 10 MG CARTRIDGE (INHALER) IH PRN (06:46)
[2022-03-29] MEDS: THIAMINE HCL 100 MG TABLET (FP) PO SCH (10:08)
[2022-03-29] MEDS: levETIRAcetam 500 MG TABLET (FP) PO SCH ×2 (10:08→21:08)
[2022-03-29] MEDS: FAMOTIDINE 20 MG TABLET PO SCH ×2 (10:08→21:08)
[2022-03-29] MEDS: PRENATAL VITAMINS W/ FOLIC ACID TABLET (FP) PO SCH (10:08)
[2022-03-29] MEDS: NICOTINE 21 MG/24 HOURS TOPICAL PATCH TD SCH (10:09)
[2022-03-29] MEDS: BACITRACIN 0.9 GM PACKET TP SCH (10:11)
[2022-03-29] MEDS: MIRTAZAPINE 15 MG TABLET (FP) PO SCH (21:08)
[2022-03-30] MEDS: methaDONE HCL 40 MG DISPERSABLE TABLET PO SCH (06:47)
[2022-03-30] MEDS: GABAPENTIN 400 MG CAPSULE PO SCH ×3 (06:47→21:24)
[2022-03-30] MEDS: levETIRAcetam 500 MG TABLET (FP) PO SCH ×2 (10:02→21:24)
[2022-03-30] MEDS: PRENATAL VITAMINS W/ FOLIC ACID TABLET (FP) PO SCH (10:02)
[2022-03-30] MEDS: BACITRACIN 0.9 GM PACKET TP SCH (10:02)
[2022-03-30] MEDS: NICOTINE 10 MG CARTRIDGE (INHALER) IH PRN ×3 (10:02→21:25)
[2022-03-30] MEDS: NICOTINE 21 MG/24 HOURS TOPICAL PATCH TD SCH (10:03)
[2022-03-30] MEDS: THIAMINE HCL 100 MG TABLET (FP) PO SCH (10:03)
[2022-03-30] MEDS: FAMOTIDINE 20 MG TABLET PO SCH ×2 (10:03→21:24)
[2022-03-30] MEDS: MIRTAZAPINE 15 MG TABLET (FP) PO SCH (21:24)
[2022-03-31] MEDS: GABAPENTIN 400 MG CAPSULE PO SCH ×3 (06:35→21:36)
[2022-03-31] MEDS: methaDONE HCL 40 MG DISPERSABLE TABLET PO SCH (06:35)
[2022-03-31] MEDS: PRENATAL VITAMINS W/ FOLIC ACID TABLET (FP) PO SCH (09:56)
[2022-03-31] MEDS: NICOTINE 21 MG/24 HOURS TOPICAL PATCH TD SCH (09:57)
[2022-03-31] MEDS: BACITRACIN 0.9 GM PACKET TP SCH (09:57)
[2022-03-31] MEDS: FAMOTIDINE 20 MG TABLET PO SCH ×2 (09:57→21:36)
[2022-03-31] MEDS: THIAMINE HCL 100 MG TABLET (FP) PO SCH (09:57)
[2022-03-31] MEDS: levETIRAcetam 500 MG TABLET (FP) PO SCH ×2 (09:57→21:36)
[2022-03-31] MEDS: NICOTINE 10 MG CARTRIDGE (INHALER) IH PRN ×2 (10:49→21:37)
[2022-03-31] MEDS: MIRTAZAPINE 15 MG TABLET (FP) PO SCH (21:36)
[2022-03-31 23:24] VITALS: RESP 18
[2022-04-01] MEDS: methaDONE HCL 40 MG DISPERSABLE TABLET PO SCH (06:31)
[2022-04-01] MEDS: GABAPENTIN 400 MG CAPSULE PO SCH ×3 (06:31→21:23)
[2022-04-01] MEDS: NICOTINE 21 MG/24 HOURS TOPICAL PATCH TD SCH (10:11)
[2022-04-01] MEDS: PRENATAL VITAMINS W/ FOLIC ACID TABLET (FP) PO SCH (10:11)
[2022-04-01] MEDS: BACITRACIN 0.9 GM PACKET TP SCH (10:12)
[2022-04-01] MEDS: levETIRAcetam 500 MG TABLET (FP) PO SCH ×2 (10:12→21:23)
[2022-04-01] MEDS: NICOTINE 10 MG CARTRIDGE (INHALER) IH PRN ×2 (10:12→21:24)
[2022-04-01] MEDS: THIAMINE HCL 100 MG TABLET (FP) PO SCH (10:13)
[2022-04-01] MEDS: FAMOTIDINE 20 MG TABLET PO SCH ×2 (10:13→21:23)
[2022-04-01] MEDS: MIRTAZAPINE 15 MG TABLET (FP) PO SCH (21:23)
[2022-04-02] MEDS: GABAPENTIN 400 MG CAPSULE PO SCH ×3 (06:27→21:14)
[2022-04-02] MEDS: methaDONE HCL 40 MG DISPERSABLE TABLET PO SCH (06:27)
[2022-04-02] MEDS: levETIRAcetam 500 MG TABLET (FP) PO SCH ×2 (10:13→21:13)
[2022-04-02] MEDS: PRENATAL VITAMINS W/ FOLIC ACID TABLET (FP) PO SCH (10:13)
[2022-04-02] MEDS: FAMOTIDINE 20 MG TABLET PO SCH ×2 (10:13→21:14)
[2022-04-02] MEDS: BACITRACIN 0.9 GM PACKET TP SCH (10:14)
[2022-04-02] MEDS: NICOTINE 21 MG/24 HOURS TOPICAL PATCH TD SCH (10:14)
[2022-04-02] MEDS: THIAMINE HCL 100 MG TABLET (FP) PO SCH (10:14)
[2022-04-02] MEDS: NICOTINE 10 MG CARTRIDGE (INHALER) IH PRN ×2 (10:16→21:14)
[2022-04-02] MEDS: MIRTAZAPINE 15 MG TABLET (FP) PO SCH (21:14)
[2022-04-03] MEDS: methaDONE HCL 40 MG DISPERSABLE TABLET PO SCH (07:04)
[2022-04-03] MEDS: GABAPENTIN 400 MG CAPSULE PO SCH (07:04)
[2022-04-03 07:25] VITALS: BP 93/67; PULSE 68; TEMP 97.9
[2022-04-03] MEDS: PRENATAL VITAMINS W/ FOLIC ACID TABLET (FP) PO SCH (10:21)
[2022-04-03] MEDS: NICOTINE 10 MG CARTRIDGE (INHALER) IH PRN (10:21)
[2022-04-03] MEDS: THIAMINE HCL 100 MG TABLET (FP) PO SCH (10:22)
[2022-04-03] MEDS: FAMOTIDINE 20 MG TABLET PO SCH (10:22)
[2022-04-03] MEDS: BACITRACIN 0.9 GM PACKET TP SCH (10:22)
[2022-04-03] MEDS: levETIRAcetam 500 MG TABLET (FP) PO SCH (10:22)
[2022-04-03] MEDS: NICOTINE 21 MG/24 HOURS TOPICAL PATCH TD SCH (10:23)
== END 2022-04-03 10:55 | disposition home or self-care (01) | DRG 772 ==
LOC: YASAS 10:06 → Y5N 12:22
PROVIDERS: ADMIT Allergy & Immunology; ATTEND Psychiatry & Neurology Pain Medicine
PROC: HZ42ZZZ Group Counseling for Substance Abuse Treatment, Cognitive-Behavioral (ICD-10-PCS; principal; 2022-03-14)
DX: F11.20 Opioid dependence, uncomplicated (principal); F14.20 Cocaine dependence, uncomplicated; F10.20 Alcohol dependence, uncomplicated; F12.20 Cannabis dependence, uncomplicated; F17.210 Nicotine dependence, cigarettes, uncomplicated; F31.9 Bipolar disorder, unspecified; F60.2 Antisocial personality disorder; F19.282 Other psychoactive substance dependence with psychoactive substance-induced sleep disorder; G40.909 Epilepsy, unspecified, not intractable, without status epilepticus; K21.9 Gastro-esophageal reflux disease without esophagitis; L03.317 Cellulitis of buttock; Z86.19 Personal history of other infectious and parasitic diseases
CPT/HCPCS: 36415; 80053; 80177; 81003; 85027; 86780; 86803; 87522; 87811; 93005; 93010; C9803-CS; U0003; U0005

== ENCOUNTER 2024-06-10 13:06 | Inpatient (IN) | payer OTHER ==
[2024-06-10 13:41] VITALS: BMI 23.2
[2024-06-10] MEDS ORDERED: NALOXONE (NARCAN) HCL 4 MG/0.1 ML SPRAY NS PRN (13:51)
[2024-06-10] MEDS ORDERED: ACETAMINOPHEN 325 MG TABLET (FP) PO PRN (13:51)
[2024-06-10] MEDS ORDERED: NICOTINE POLACRILEX 2 MG LOZENGE BC PRN (13:51)
[2024-06-10] MEDS ORDERED: MAG HYDROX/AL HYDROX/SIMETH 30 ML UNIT-DOSE CUP PO PRN (13:51)
[2024-06-10] MEDS ORDERED: IBUPROFEN 400 MG TABLET (FP) PO PRN (13:51)
[2024-06-10] MEDS ORDERED: BISMUTH SUBSALICYLATE 524 MG/30 ML PO PRN (13:51)
[2024-06-10] MEDS ORDERED: LOPERAMIDE HCL 2 MG CAPSULE PO PRN (13:51)
[2024-06-10] MEDS ORDERED: DICYCLOMINE HCL 10 MG CAPSULE PO PRN (13:51)
[2024-06-10] MEDS ORDERED: BENZONATATE 200 MG CAPSULE PO PRN (13:51)
[2024-06-10] MEDS ORDERED: NICOTINE POLACRILEX 2 MG GUM BUC PRN (13:51)
[2024-06-10] MEDS ORDERED: BENZOCAINE/MENTHOL (CHLORASEPTIC ) LOZENGE MM PRN (13:51)
[2024-06-10] MEDS ORDERED: MAGNESIUM HYDROX 2400MG/30ML ORAL SUSPENSION 30 ML CUP PO PRN (13:51)
[2024-06-10] MEDS ORDERED: guaiFENesin 600 MG TABLET.ER (FP) PO PRN (13:51)
[2024-06-10] MEDS ORDERED: POLYETHYLENE GLYCOL (HEALTHYLAX) 3350 17 GM PACKET PO PRN (13:51)
[2024-06-10] MEDS: levETIRAcetam 500 MG TABLET (FP) PO SCH (15:41)
[2024-06-10] MEDS: THIAMINE 100 MG TABLET PO SCH (21:49)
[2024-06-10] MEDS: MELATONIN 5 MG TABLETS PO SCH (21:50)
[2024-06-11 10:07] LABS: HEMATOCRIT 36.5 % (35.4-49); HEMOGLOBIN 12.7 GM/dL (11.7-16.9); MCH 29.9 pg (25.7-33.7); MCHC 34.7 g/dl (32.0-35.9); MEAN CELL VOLUME 86.1 fl (80-96); MEAN PLT VOLUME 8.9 fl (7.5-11.1); PLATELET COUNT 147 10^3/uL (134-434); RBC 4.25 M/mm3 (4.00-5.60); RDW 15.6 % (11.9-15.9); WHITE BLOOD COUNT 3.8 K/mm3 (4.0-10.0)
[2024-06-11 10:13] LABS: ALBUMIN 3.1 g/dl (3.4-5.0); BLOOD UREA NITROGEN 15.3 mg/dL (7-18); CALCIUM 8.4 mg/dL (8.5-10.1)
[2024-06-11 10:17] LABS: CREATININE 0.9 mg/dL (0.55-1.3)
[2024-06-11 10:18] LABS: BILIRUBIN,TOTAL 0.4 mg/dL (0.2-1); TOT PROT 7.1 g/dl (6.4-8.2)
[2024-06-11] MEDS: PRENATAL VITAMINS W/ FOLIC ACID TABLET (FP) PO SCH (10:28)
[2024-06-11] MEDS ORDERED: cloNIDine HCL 0.1 MG TABLET PO PRN (10:31)
[2024-06-11] MEDS ORDERED: methaDONE HCL 10 MG TABLET (FOR DETOX USE ONLY) PO PRN (10:31)
[2024-06-11] MEDS ORDERED: TRIMETHOBENZAMIDE HCL 200MG/2ML INJ IM PRN (10:40)
[2024-06-11] MEDS: methaDONE HCL 10 MG TABLET (FOR DETOX USE ONLY) PO ONE (10:50)
[2024-06-11] MEDS: IBUPROFEN 600 MG TABLET (FP) PO PRN (10:52)
[2024-06-11] MEDS: METHOCARBAMOL 500 MG TABLET PO PRN (10:52)
[2024-06-11] MEDS: hydrOXYzine PAMOATE 25 MG CAPSULE (FP) PO PRN (22:01)
[2024-06-12] MEDS: ONDANSETRON *ODT* 4 MG TABLET SL PRN (09:22)
[2024-06-13] MEDS: methaDONE HCL 10 MG TABLET PO ONE (11:24)
[2024-06-13] MEDS: methaDONE HCL 10 MG TABLET (FOR DETOX USE ONLY) PO ONE ×2 (11:24→11:29)
[2024-06-14 09:05] VITALS: BP 115/77; PULSE 69; RESP 16; TEMP 98
[2024-06-14] MEDS: NALOXONE (NYS OPIOID OVERDOSE PROGRAM) 4 MG/0.1 ML SPRAY NS SCH (10:52)
[2024-06-15] MEDS ORDERED: methaDONE HCL 10 MG TABLET (FOR DETOX USE ONLY) PO ONE (10:00)
== END 2024-06-14 10:57 | disposition home or self-care (01) | DRG 773 ==
LOC: YASAS 13:06 → Y6N 15:22
PROVIDERS: ADMIT Neuromusculoskeletal Medicine & OMM; ATTEND Surgery
PROC: HZ2ZZZZ Detoxification Services for Substance Abuse Treatment (ICD-10-PCS; principal; 2024-06-10)
DX: F11.23 Opioid dependence with withdrawal (principal); F14.20 Cocaine dependence, uncomplicated; F17.210 Nicotine dependence, cigarettes, uncomplicated; F31.9 Bipolar disorder, unspecified; G40.909 Epilepsy, unspecified, not intractable, without status epilepticus; K21.9 Gastro-esophageal reflux disease without esophagitis
CPT/HCPCS: 36415; 80053; 85027; 86780; 93005; 93010; Q0162

== ENCOUNTER 2024-08-30 09:39 | Inpatient (IN) | payer OTHER ==
[2024-08-30 09:52] VITALS: BMI 21.9
[2024-08-30] MEDS ORDERED: ONDANSETRON *ODT* 4 MG TABLET SL PRN (10:26)
[2024-08-30] MEDS ORDERED: POLYETHYLENE GLYCOL (HEALTHYLAX) 3350 17 GM PACKET PO PRN (10:26)
[2024-08-30] MEDS ORDERED: BENZOCAINE/MENTHOL (CHLORASEPTIC ) LOZENGE MM PRN (10:26)
[2024-08-30] MEDS ORDERED: NALOXONE (NARCAN) HCL 4 MG/0.1 ML SPRAY NS PRN (10:26)
[2024-08-30] MEDS ORDERED: LOPERAMIDE HCL 2 MG CAPSULE PO PRN (10:26)
[2024-08-30] MEDS ORDERED: NICOTINE POLACRILEX 2 MG GUM BUC PRN (10:26)
[2024-08-30] MEDS ORDERED: guaiFENesin 600 MG TABLET.ER (FP) PO PRN (10:26)
[2024-08-30] MEDS ORDERED: IBUPROFEN 600 MG TABLET (FP) PO PRN (10:26)
[2024-08-30] MEDS ORDERED: NICOTINE POLACRILEX 2 MG LOZENGE BC PRN (10:26)
[2024-08-30] MEDS ORDERED: MAGNESIUM HYDROX 2400MG/30ML ORAL SUSPENSION 30 ML CUP PO PRN (10:26)
[2024-08-30] MEDS ORDERED: MAG HYDROX/AL HYDROX/SIMETH 30 ML UNIT-DOSE CUP PO PRN (10:26)
[2024-08-30] MEDS ORDERED: DICYCLOMINE HCL 10 MG CAPSULE PO PRN (10:26)
[2024-08-30] MEDS ORDERED: ACETAMINOPHEN 325 MG TABLET (FP) PO PRN (10:26)
[2024-08-30] MEDS ORDERED: BENZONATATE 200 MG CAPSULE PO PRN (10:26)
[2024-08-30] MEDS ORDERED: IBUPROFEN 400 MG TABLET (FP) PO PRN (10:26)
[2024-08-30] MEDS ORDERED: BISMUTH SUBSALICYLATE 262 MG/15 ML BTL PO PRN (10:26)
[2024-08-30] MEDS ORDERED: cloNIDine HCL 0.1 MG TABLET PO PRN (10:27)
[2024-08-30] MEDS ORDERED: levETIRAcetam 500 MG TABLET (FP) PO ONE (11:50)
[2024-08-30] MEDS: levETIRAcetam 500 MG TABLET (FP) PO SCH (11:52)
[2024-08-30] MEDS: MELATONIN 5 MG TABLETS PO SCH (22:49)
[2024-08-30] MEDS: THIAMINE 100 MG TABLET PO SCH (22:49)
[2024-08-30] MEDS: methaDONE HCL 10 MG TABLET (FOR DETOX USE ONLY) PO ONE (22:50)
[2024-08-30] MEDS: METHOCARBAMOL 500 MG TABLET PO PRN (22:52)
[2024-08-31] MEDS: PRENATAL VITAMINS W/ FOLIC ACID TABLET (FP) PO SCH (10:38)
[2024-08-31] MEDS ORDERED: methaDONE HCL 40 MG DISPERSABLE TABLET PO ONE (14:55)
[2024-08-31] MEDS ORDERED: cloNIDine HCL 0.1 MG TABLET PO PRN (15:01)
[2024-08-31] MEDS: diazePAM 5 MG TABLET PO PRN (15:39)
[2024-08-31 16:59] LABS: HEMATOCRIT 41.7 % (35.4-49); HEMOGLOBIN 13.7 GM/dL (11.7-16.9); MCH 28.4 pg (25.7-33.7); MCHC 32.8 g/dl (32.0-35.9); MEAN CELL VOLUME 86.5 fl (80-96); MEAN PLT VOLUME 9.2 fl (7.5-11.1); PLATELET COUNT 189 10^3/uL (134-434); RBC 4.82 M/mm3 (4.00-5.60); RDW 14.3 % (11.9-15.9); WHITE BLOOD COUNT 11.2 K/mm3 (4.0-10.0)
[2024-08-31 17:15] LABS: ALBUMIN 3.1 g/dl (3.4-5.0)
[2024-08-31 17:16] LABS: CALCIUM 8.9 mg/dL (8.5-10.1)
[2024-08-31 17:17] LABS: CREATININE 0.8 mg/dL (0.55-1.3)
[2024-08-31 17:19] LABS: BILIRUBIN,TOTAL 0.5 mg/dL (0.2-1); TOT PROT 7.2 g/dl (6.4-8.2)
[2024-08-31] MEDS: hydrOXYzine PAMOATE 25 MG CAPSULE (FP) PO PRN (17:34)
[2024-09-01] MEDS ORDERED: methaDONE HCL 10 MG TABLET (FOR DETOX USE ONLY) PO ONE (10:00)
[2024-09-01] MEDS: methaDONE 40 MG, methaDONE 20 MG PO ONE (10:33)
[2024-09-01] MEDS: SULFAMETHOXAZOLE/TRIMETHOPRIM 800MG/160MG D.S. TABLET PO SCH (10:33)
[2024-09-02] MEDS: methaDONE 40 MG, methaDONE 30 MG PO ONE (09:43)
[2024-09-03] MEDS: methaDONE 40 MG, methaDONE 30 MG PO ONE (09:34)
[2024-09-03] MEDS ORDERED: methaDONE HCL 10 MG TABLET (FOR DETOX USE ONLY) PO ONE (10:00)
[2024-09-03] MEDS ORDERED: methaDONE HCL 40 MG DISPERSABLE TABLET PO ONE ×2 (10:00)
[2024-09-03] MEDS ORDERED: levETIRAcetam 250 MG TABLET PO ONE (22:49)
[2024-09-04] MEDS ORDERED: levETIRAcetam 250 MG TABLET PO ONE (09:21)
[2024-09-04 09:27] VITALS: RESP 16
[2024-09-04] MEDS: methaDONE 40 MG, methaDONE 30 MG PO ONE ×2 (09:42→13:12)
[2024-09-04] MEDS ORDERED: methaDONE 80 MG, methaDONE 10 MG PO ONE (10:00)
[2024-09-04] MEDS ORDERED: methaDONE HCL 40 MG DISPERSABLE TABLET PO ONE (10:00)
[2024-09-04 13:13] VITALS: BP 107/66; PULSE 74; TEMP 97.6
== END 2024-09-04 13:59 | disposition home or self-care (01) | DRG 773 ==
LOC: YASAS 09:39 → Y6N 11:51
PROVIDERS: ADMIT Allergy & Immunology; ATTEND Allergy & Immunology
PROC: HZ2ZZZZ Detoxification Services for Substance Abuse Treatment (ICD-10-PCS; principal; 2024-08-30)
DX: F11.23 Opioid dependence with withdrawal (principal); F10.20 Alcohol dependence, uncomplicated; F14.20 Cocaine dependence, uncomplicated; F12.20 Cannabis dependence, uncomplicated; F17.210 Nicotine dependence, cigarettes, uncomplicated; F19.282 Other psychoactive substance dependence with psychoactive substance-induced sleep disorder; F19.24 Other psychoactive substance dependence with psychoactive substance-induced mood disorder; F31.9 Bipolar disorder, unspecified; F60.2 Antisocial personality disorder; G40.909 Epilepsy, unspecified, not intractable, without status epilepticus; G47.00 Insomnia, unspecified; K21.9 Gastro-esophageal reflux disease without esophagitis; B18.2 Chronic viral hepatitis C; R73.9 Hyperglycemia, unspecified; Z56.0 Unemployment, unspecified; Z59.00 Homelessness unspecified
CPT/HCPCS: 0241U-QW; 36415; 71045-TC-FY; 80053; 80305; 80307; 85027; 86780; 93005; 93010